=== PATIENT | female | born 1950 | race Caucasian/White ===

== ENCOUNTER → 2016-09-19 | Outpatient (CLI) | payer OTHER ==
[2010-08-30 16:53] VITALS: BP 138/83
== END ==
LOC: MMPC 11:11
PROVIDERS: ATTEND Surgery
DX: Z80.0 Family history of malignant neoplasm of digestive organs (principal)
CPT/HCPCS: 99202; G0463

== ENCOUNTER 2016-09-25 07:06 | Day surgery (SDC) | payer OTHER ==
[~2016-09-25 07:06] MED LIST: LIDOCAINE W/ SODIUM BICARB 0.5 ML SYR ONE; Lactated Ringers 1,000 ML PRIMARY IV ONE
[2016-09-25] MEDS ORDERED: fentaNYL Inj 100 MCG/2 ML VIAL ONE (07:10)
--- NOTE | 2016-09-25 08:37 | GEN.OPNOTE ---
Colonoscopy Procedure Note Surgery Date: 09/25/16 Preoperative Diagnosis: Colon cancer screening. Family history of colon cancer. Postoperative Diagnosis: Colon cancer screening. Family history of colon cancer. Procedure: Complete colonoscopy. Surgeon: Jackson Alfaro MD Anesthesia Provider: Remberto Washington CRNA Anesthesia Type: MAC Indications: See preoperative diagnosis. Findings: Prep : [Good with some retained stool in the right colon.] Cecum : [Normal. A small polyp could've been missed. No gross abnormalities.] Ascending : [Normal] Transverse : [Normal] Sigmoid : [Normal] Rectum : [Normal] Digital Rectal Exam : [Normal] A lubricated flexible colonoscope was inserted and passed to the blind end of the cecum. There was some retained tenacious stool. I tried to wash it off it was unable to. A small polyp could've been missed but nothing of significant size. Air was aspirated as the scope was withdrawn. The entire colonoscopy was normal without polyp, tumor, neoplastic mass, infectious or inflammatory process. There were a few scattered sigmoid diverticuli. The scope was withdrawn completing the procedure. Patient tolerated the procedure well without complication. She was taken to outpatient surgery in stable condition. Return to my office on an as-needed basis. Recommend follow-up colonoscopy in 5 years for family history of colon cancer.
[2016-09-25 09:11] VITALS: TEMP 97.3
[2016-09-25 09:14] VITALS: RESP 16
== END 2016-09-25 08:53 | disposition home or self-care (01) ==
LOC: SDSC 07:06
PROVIDERS: ATTEND Surgery
DX: Z80.0 Family history of malignant neoplasm of digestive organs (principal); Z12.11 Encounter for screening for malignant neoplasm of colon
CPT/HCPCS: G0105 ×2; J2704; J3010; J7120